=== PATIENT | female | born 2000 | race Two or more races ===

== ENCOUNTER 2022-01-26 11:18 | Inpatient (IN) ==
[2022-01-26] MEDS ORDERED: OXYTOCIN 30 UNITS/500 ML BAG IV PRN (12:09)
[2022-01-26 12:36] LABS: Hematocrit (blood only) 34.8 % (37-47); Hemoglobin 12.3 g/dL (12.0-16.0); Mean Corpuscular Hemoglobin 32.2 pg (25-34); Mean Corpuscular Hgb Conc 35.3 g/dL (32-36); Mean Corpuscular Volume 91.1 fL (80-100); Mean Platelet Volume 11.1 fL (7.4-10.4); Platelet Count 217 K/uL (130-400); RDW Coefficient of Variation 12.9 % (11.5-14.5); Red Blood Count 3.82 M/uL (4.2-5.4); White Blood Count 8.49 K/uL (4.8-10.8)
[2022-01-26] MEDS: LACTATED RINGER'S 1,000 ML IV PRN ×3 (13:13→19:28)
[2022-01-26] MEDS ORDERED: BUPIVACAINE 0.25% 30 ML VIAL ONE (13:35)
[2022-01-26] MEDS ORDERED: ePHEDrine sulfate 50 MG/ML AMP ONE (13:35)
[2022-01-26] MEDS ORDERED: fentaNYL citrate 100 MCG/2 ML VIAL ONE (13:35)
[2022-01-26] MEDS ORDERED: SODIUM CHLORIDE 0.9% INJ 10 ML VIAL ONE (13:35)
[2022-01-26] MEDS ORDERED: fentaNYL 2MCG/ML ROPIVACAINE 1.25MG/ML 100 ML BAG EPI ONE (13:36)
--- NOTE | 2022-01-26 13:36 | Anesthesiology Consultation ---
Date of Service January 26, 2022 Assessment & Plan (1) Encounter for pre-operative examination: Chart Review Chart Review: Patient NOT seen in Pre Admission Testing and Acceptable Risk for Labor Epidural Consults Requested none History Height/Weight Height: 5 ft 2.99 in Weight: 64.864 kg Allergies Allergy/AdvReac Type Severity Reaction Status Date / Time No Known Allergies Allergy Verified 01/26/22 10:10 Medications Home Medications Medication Instructions Recorded Confirmed Last Taken prenat.vits,kusum,jiy-dtlg-qgaod 1 tab PO DAILY 01/26/22 01/26/22 01/25/22 Active Medications Generic Name Dose Route Start Last Admin Trade Name Freq PRN Reason Stop Dose Admin Lactated Ringer's 1,000 mls @ 125 mls/hr 01/26/22 12:09 01/26/22 13:13 Lr IV 01/28/22 12:08 999 mls/hr .Q8H PRN Administration L&D Protocol Protocol Past Medical History Medical History No pertinent past medical history Varicella vaccination Past Family History Family History Other No significant family history Denies family history of Ovarian cancer Prostate cancer Breast cancer Colorectal cancer Past Surgical History Surgical History No pertinent past surgical history Social History Smoking Status: Never smoker Hx Alcohol Use: No Hx Substance Use: No substance use type: does not use Physical Exam Vital Signs Last Vital Signs Pulse 104 H 01/26/22 13:33 Resp 18 01/26/22 11:44 BP 130/77 01/26/22 11:33 Pulse Ox 99 01/26/22 13:33 Testing Laboratory Results 01/26/22 12:23
[2022-01-26] MEDS ORDERED: ONDANSETRON INJ 2 MG/ML 2 ML VIAL IV PRN (14:09)
[2022-01-26] MEDS ORDERED: fentaNYL 2MCG/ML ROPIVACAINE 1.25MG/ML 100 ML BAG EPI PRN (14:09)
[2022-01-26] MEDS ORDERED: NALOXONE HCL 1 MG in SODIUM CHLORIDE 0.9% 1000ML 1,000 ML IV PRN (14:09)
[2022-01-26] MEDS ORDERED: diphenhydrAMINE 50 MG/ML VIAL IV PRN (14:09)
[2022-01-26] MEDS ORDERED: ePHEDrine sulfate 50 MG/ML AMP IV PRN (14:09)
[2022-01-26] MEDS ORDERED: NALBUPHINE HCL INJ 10 MG/ML AMP IV PRN (14:09)
[2022-01-26] MEDS ORDERED: NALOXONE HCL 0.4 MG/1 ML VIAL/CARP IV PRN (14:09)
[2022-01-26] MEDS ORDERED: ACETAMINOPHEN 325 MG TAB PO ONE (17:21)
--- NOTE | 2022-01-26 20:55 | Delivery Summary ---
Vaginal Delivery Summary Date of Service January 26, 2022 Vaginal Delivery Summary DIAGNOSES: 1. [place] intrauterine at 39w5d gestation. 2. Spontaneous onset of labor. 3. Group B Streptococcus Neg. PROCEDURE: Spontaneous vaginal delivery and repair of second degree laceration. SURGEON: Sandy Freeman MD. SUPPLIER QUALITY ENGINEERING MANAGER: None. ESTIMATED BLOOD LOSS: 500 mL. COMPLICATIONS: None. PLACENTA: Spontaneous and intact with a 3-vessel cord. DISPOSITION: Stable to labor and delivery. DESCRIPTION: The patient pushed well and brought the head to in DOA position with asynclitism noted during descent. There was significant molding of the head, which was obviously large for the petite mother/pelvis, and markedly elongated on delivery. There was no nuchal cord. The right shoulder was anterior. Shoulder dystocia was immediately recognized and help was summoned while [place] position was employed. Suprapubic pressure was applied from the posterior aspect of the anterior shoulder of the , while the patient was asked to give maximal pushing effort. The anterior shoulder did deliver with gentle downward guidance of the head. With gentle upward traction and the next maternal effort, the posterior shoulder followed. Delivery of the 's body required yet another maternal effort and additional traction from the delivering physician. The infant was placed on the maternal abdomen. It was vigorous and moving all extremities, and making respiratory efforts. The cord was doubly clamped by the MD and then cut by the FOB. The placenta delivered spontaneously and was noted to be intact and with a 3VC. The cervix, vagina and perineum were examined and were found to have a second-degree laceration, which was repaired in the usual manner using vicryl suture. The fundus was firm and lochia minimal immediately after delivery. [facility] Vaginal Delivery Charge Vaginal Delivery Codes: 72561 global code for the antepartum, delivery, and post-
[2022-01-26] MEDS ORDERED: DIPHTHERIA/TETANUS/PERTUSSIS 0.5 ML SYR/VIAL IM ONE (21:21)
[2022-01-26] MEDS ORDERED: HYDROCORTISONE ACETATE 25 MG SUPP PR PRN (21:21)
[2022-01-26] MEDS ORDERED: oxyCODONE/ACETAMINOPHEN 5mg/325mg TAB PO PRN (21:21)
[2022-01-26] MEDS ORDERED: ACETAMINOPHEN 325 MG TAB PO PRN (21:21)
[2022-01-26] MEDS ORDERED: BENZOCAINE 20% AER SPR 82.5 GM CAN EXT PRN (21:21)
--- NOTE | 2022-01-26 22:27 | Anesthesia Procedure Note ---
Date of Service January 26, 2022 Anesthesia Post Epidural Note Vital Signs Vital Signs: Temp Pulse Resp BP Pulse Ox 37.5 C 76 18 139/73 95 01/26/22 19:15 01/26/22 22:13 01/26/22 19:15 01/26/22 22:13 01/26/22 20:39 Notes Mental Status: alert / awake / arousable and participated in evaluation Nausea / Vomiting: adequately controlled Pain: adequately controlled Airway Patency, RR, SpO2: stable & adequate BP & HR: stable & adequate Hydration State: stable & adequate Neuraxial Anesthesia: was administered and sensory block is resolving Anesthetic Complications: no major complications apparent and Pt Satisfied with anesthetic care Epidural: Removed without complications and With tip intact Notes: Epidural site clean, dry and intact. No signs of edema, erythema or bruising at insertion site. Pt instructed to request anesthesia if she has residual lower extremity numbness or if she develops lower extremity pain or weakness, back pain or headache.
[2022-01-27] MEDS: DOCUSATE SODIUM 100 MG CAP PO SCH ×3 (02:05→23:38)
[2022-01-27 06:52] LABS: Hematocrit (blood only) 29.4 % (37-47); Hemoglobin 10.2 g/dL (12.0-16.0); Mean Corpuscular Hemoglobin 32.3 pg (25-34); Mean Corpuscular Hgb Conc 34.7 g/dL (32-36); Mean Platelet Volume 11.1 fL (7.4-10.4); Platelet Count 187 K/uL (130-400); RDW Coefficient of Variation 12.9 % (11.5-14.5); RDW Standard Deviation 43.8 fL (36.4-46.3); Red Blood Count 3.16 M/uL (4.2-5.4); White Blood Count 18.66 K/uL (4.8-10.8)
--- NOTE | 2022-01-27 06:57 | Obstetrical Progress Note ---
Date of Service January 27, 2022 Assessment & Plan (1) state: PPD#1 routine care Subjective Ambulation: ambulating normally Voiding: no voiding problems Passing Gas:: Yes Diet Tolerance:: regular diet Lochia:: Small Feeding Type:: breast feeding Physical Exam Constitutional WD/WN, vitals as above Eyes PERRL, conjunctivae normal, anicteric sclerae Neck normal visual inspection Respiratory normal respiratory effort and able to speak in complete sentences; no respiratory distress and no labored breathing Cardiovascular Rate/Rhythm: regular rate and regular rhythm Extremities: no edema Chest (Breasts) Chest: normal inspection of chest Gastrointestinal (Abdomen) Inspection/Auscultation: abdomen normal to inspection Soft, postgravid Psychiatric A+Ox3, euthymic affect Genitourinary OB Exam Abdomen: + fundal height Fundus: + firm and + relation to umbilicus (fundus just below umbilicus); not tender Results & Data ([facility]) Vital Signs (Past 12 Hours) Vital Signs Temp Pulse Pulse Resp BP BP Pulse Ox 01/27/22 04:00 98.8 F 71 20 104/63 97 01/27/22 00:13 98.4 F 61 20 139/79 98 01/26/22 22:43 63 123/66 01/26/22 22:28 74 129/65 01/26/22 22:27 98.6 F 18 01/26/22 22:13 76 139/73 01/26/22 21:58 68 125/67 01/26/22 21:43 73 120/63 01/26/22 21:28 81 128/65 01/26/22 21:13 75 126/73 01/26/22 20:58 73 134/79 01/26/22 20:43 76 124/74 01/26/22 20:39 92 H 95 01/26/22 20:35 99.5 F 18 01/26/22 20:34 95 H 97 01/26/22 20:29 90 96 01/26/22 20:28 85 125/56 L 01/26/22 20:26 96 H 123/56 L 01/26/22 20:24 99 H 97 01/26/22 20:21 148 H 94 01/26/22 20:19 97 H 97 01/26/22 20:14 132 H 96 01/26/22 20:09 116 H 96 01/26/22 20:05 139 H 92 01/26/22 20:04 112 H 96 01/26/22 19:59 125 H 131/61 96 01/26/22 19:54 90 97 01/26/22 19:49 108 H 96 01/26/22 19:44 83 131/64 96 01/26/22 19:41 119 H 94 01/26/22 19:39 87 98 01/26/22 19:34 114 H 95 01/26/22 19:33 82 91 01/26/22 19:29 70 123/74 98 01/26/22 19:24 81 97 01/26/22 19:19 73 96 01/26/22 19:15 99.5 F 76 18 92 01/26/22 19:14 78 96 01/26/22 19:13 74 117/70 01/26/22 19:09 82 96 01/26/22 19:04 77 96 01/26/22 19:03 74 93 01/26/22 18:59 81 122/70 96
[2022-01-27] MEDS: PRENATAL VITAMIN 1 TAB PO SCH (08:57)
[2022-01-27] MEDS: IBUPROFEN 600 MG TAB PO PRN ×2 (08:58→23:38)
[2022-01-28 06:35] LABS: Hematocrit (blood only) 30.5 % (37-47); Hemoglobin 10.4 g/dL (12.0-16.0)
--- NOTE | 2022-01-28 08:37 | Obstetrical Progress Note ---
Date of Service January 28, 2022 Assessment & Plan (1) state: Day 2 S/p . Doing well. Stable for discharge Subjective Ambulation: ambulating normally Voiding: no voiding problems Passing Gas:: Yes Diet Tolerance:: regular diet Lochia:: Moderate Feeding Type:: breast feeding Physical Exam Constitutional WD/WN, vitals as above Respiratory normal respiratory effort; no respiratory distress and no labored breathing Gastrointestinal (Abdomen) Inspection/Auscultation: abdomen normal to inspection; abdomen not distended Percussion/Palpation: abdomen soft; abdomen nontender, no guarding and abdomen not rigid Genitourinary OB Exam Abdomen: + fundal height Fundus: + firm and + relation to umbilicus ([place] ow); not tender or not boggy Results & Data ([facility]) Vital Signs (Past 12 Hours) Vital Signs Temp Pulse Resp BP 01/27/22 23:20 36.8 C 89 18 128/76
[2022-01-28] MEDS: DOCUSATE SODIUM 100 MG CAP PO SCH (09:14)
[2022-01-28] MEDS: PRENATAL VITAMIN 1 TAB PO SCH (09:15)
== END 2022-01-28 19:00 | disposition home or self-care (01) | DRG 807 ==
LOC: 4S1 11:18 → 4E2 23:40